=== PATIENT | female | born 1955 | race Asian ===

== ENCOUNTER 2021-06-21 07:12 | Emergency (ER) | payer MEDICARE, SELFPAY ==
[2021-06-21] VITALS (11 sets, daily range): BP systolic 151–208; BP diastolic 84–107; PULSE 68–80; RESP 17–33; TEMP 36.1–36.6; O2SAT 98–99
--- NOTE | 2021-06-21 07:45 | DI.CT.S_ITS ---
PROCEDURE: CT HEAD/BRAIN WO CON INDICATIONS: headache and HTN TECHNIQUE: Noncontrast 4.5 mm thick angled axial sections acquired from the foramen magnum to the vertex, with coronal and sagittal reformats. For radiation dose reduction, the following was used: automated exposure control, adjustment of mA and/or kV according to patient size. COMPARISON: None. FINDINGS: Image quality: Excellent. CSF spaces: Basal cisterns are patent. No extra-axial fluid collections. The ventricles are symmetric in size and shape. Brain: No intracranial bleeds or masses. There is cerebral volume loss for age, with resultant ventricular and sulcal prominence. There are periventricular and deep white matter chronic small vessel ischemic changes. There is intracranial internal carotid artery atherosclerosis. Skull and face: Calvarium and visualized facial bones appear intact, without suspicious lesions. Sinuses: Visualized sinuses and mastoids are clear. IMPRESSION: No acute intracranial disease process. Dictated by: Lety Longoria MD, PhD on 06/21/2021 at 8:24 Approved by: Lety Longoria MD, PhD on 06/21/2021 at 8:26
--- NOTE | 2021-06-21 07:47 | ED.HA ---
HPI - Headache General Chief Complaint: Headache Stated Complaint: headache x2 days Time Seen by Provider: 06/21/21 07:45 History of Present Illness HPI Narrative: Patient is a 65-year-old female with no past medical history presenting today with 2 days of headache. She says she thinks it is due to stress, it feels like a cramp all over her head. She denies any nausea or vomiting no numbness tingling or weakness. She has been taking Aleve without and with relief. She has no neck pain fever. She is noted to have hypertension without blood pressure over 200 in the emergency department. She denies any prior history of hypertension. She says that she has insomnia and is drinks every night so that she can sleep. Language line is used for interpretation along with family member. Related Data Previous Rx's Medication Instructions Recorded hydrochlorothiazide 25 mg tablet 25 mg PO DAILY #30 tab 06/21/21 Allergies Allergy/AdvReac Type Severity Reaction Status Date / Time No Known Drug Allergies Allergy Verified 06/21/21 08:01 Review of Systems Review of Systems Narrative: GENERAL: Denies chills, fatigue, malaise, fever, sweats, travel HEENT: Denies sinus pain, ear pain, sore throat, difficulty swallowing, neck pain RESPIRATORY: Denies dyspnea, cough, wheezing, hemoptysis, sputum. CARDIOVASCULAR: Denies chest pain, palpitations, orthopnea, edema GASTROINTESTINAL: Denies nausea, vomiting, abdominal pain, diarrhea, constipation, melena. : Denies dysuria, frequency, incontinence, hematuria, urinary retention, flank pain. MUSCULOSKELETAL: Denies weakness, joint pain, or bony pain SKIN: No rash, no erythema, no pruritus NEUROLOGIC: See HPI PSYCHIATRIC: No concerning psychosocial issues. 12 point review of systems is negative except for those stated above and HPI Patient History Social History Smoking Status: Never smoker alcohol intake frequency: 3 or more drinks per day Alcohol type: beer and hard liquor Exam Initial Vital Signs Initial Vital Signs: Vital Signs Temperature 97 F L 06/21/21 07:28 GENERAL: Alert well-appearing 65-year-old HEENT: Head atraumatic,EOMI, pupils reactive, face symmetric, neck is supple without meningeal signs CARDIOVASCULAR: Regular rate and rhythm without murmurs, rubs or gallops. RESPIRATORY: Breath sounds equal bilaterally, no wheezes rales or rhonchi. ABDOMEN: Soft, nontender. Normoactive bowel sounds all 4 quadrants. No guarding or rebound. EXTREMITIES: Normal range of motion, no clubbing or edema. Neurovascularly intact NEUROLOGICAL: Alert and oriented x4.Normal gait and speech. Cranial nerves II through XII grossly intact. Good [id number], good [id number], strength equal bilaterally, no dysarthria or aphasia, sensation in tact to soft touch bilaterally, no visual changes, no facial droop SKIN: Warm, dry, no laceration, no petechiae, no rashes or lesions. Scores NIH Stroke Scale Level of Conciousness: Alert, keenly responsive Ask month/age: Answers both questions correctly. Open/close eyes, close hand: Performs both tasks correctly Best gaze horizontal: Normal Visual nettles: No visual loss Facial palsy: Normal symetrical movement Left arm drift: No drift for full 10 sec Right arm drift: No drift for full 10 sec Left leg drift: No drift for full 5 sec Right leg drift: No drift for full 5 sec Limb ataxia: Absent Sensory on face/arms/legs: Normal, no sensory loss Best language: No aphasia, normal Dysarthria: Normal Extinction or inattention: No abnormality Total NIH Stroke scale score: 0 Course Orders Ordered: Discontinued Medications Ketorolac Tromethamine (Ketorolac 30 Mg/Ml Vial) 15 mg IV NOW ONE Stop: 06/21/21 08:40 Last Admin: 06/21/21 09:03 Dose: 15 mg Documented by: SHERRY Labetalol HCl (Labetalol 20 Mg/4 Ml Syringe) 10 mg IV NOW ONE Stop: 06/21/21 07:47 Last Admin: 06/21/21 09:53 Dose: Not Given Documented by: MIGUELOTEM Labetalol HCl (Labetalol 20 Mg/4 Ml Syringe) 10 mg IV NOW ONE Stop: 06/21/21 09:35 Last Admin: 06/21/21 09:42 Dose: 10 mg Documented by: JOSEP Vital Signs Vital signs: Vital Signs - 8 hr 06/21/21 10:22 Pulse Rate 78 Respiratory Rate 18 Blood Pressure 151/84 H Pulse Oximetry 98 MDM - Headache Lab Data Result diagrams: 06/21/21 07:59 06/21/21 07:59 Labs: Lab Results 06/21/21 06/21/21 Range/Units 07:59 07:59 WBC 7.0 (4.5-11.0) X10^3/uL RBC 4.53 (4.0-5.2) X10^6/uL Hgb 14.4 (12.0-16.0) g/dL Hct 42.8 (36-46) % MCV 94.6 (80-100) fL MCH 31.8 (26-34) PG MCHC 33.6 (30-36) % RDW 13.4 (11.6-14.8) % Plt Count 250 (150-400) X10^3/uL Neut % (Auto) 60.0 (50-75) % Lymph % (Auto) 29.5 (25-40) % [place] % (Auto) 7.8 (3-14) % Eos % (Auto) 2.1 (2-4) % Baso % (Auto) 0.6 (0-2) % Neut # (Auto) 4200 (3076-9479) /uL Lymph # (Auto) 2100 (1495-0107) /uL [place] # (Auto) 500 (0-900) /uL Eos # (Auto) 100 (0-450) /uL Baso # (Auto) 0 (0-100) /uL Sodium 143 (137-145) mmol/L Potassium 4.0 (3.4-5.1) mmol/L Chloride 105 (98-107) mmol/L Carbon Dioxide 33 H (22-32) mmol/L BUN 12 (7-17) mg/dL Creatinine 0.66 (0.52-1.04) mg/dL Estimated GFR > 60.0 (>60) mL/min BUN/Creatinine Ratio 18.2 (6-22) Glucose 113 H (80-110) mg/dL Calcium 9.7 (8.4-10.2) mg/dL Total Bilirubin 0.5 (0.2-1.3) mg/dL AST 38 H (14-36) IU/L ALT 30 (<35) IU/L Alkaline Phosphatase 69 (38-126) U/L Total Creatine Kinase 104 (30-135) U/L CK-MB (CK-2) 3.02 H (<2.37) ng/mL CK-MB (CK-2) Rel Index 2.9 (1.5-5.0) % Troponin I < 0.012 (0.01-0.034) ng/mL Total Protein 8.2 (6.3-8.2) g/dL Albumin 4.8 (3.5-5.0) g/dL Globulin 3.4 (1.7-4.1) g/dL Albumin/Globulin Ratio 1.4 (1.0-2.8) Lipase 205 (23-300) U/L Imaging Data CT scan - head: Radiologist's Impression: PROCEDURE:? CT HEAD/BRAIN WO CON ? INDICATIONS:? headache and HTN ? TECHNIQUE:? Noncontrast 4.5 mm thick angled axial sections acquired from the foramen magnum to the vertex, with coronal and sagittal reformats.? For radiation dose reduction, the following was used:? automated exposure control, adjustment of mA and/or kV according to patient size.? ? COMPARISON:? None. ? FINDINGS:? Image quality:? Excellent.? ? CSF spaces:? Basal cisterns are patent.? No extra-axial fluid collections.? The ventricles are symmetric in size and shape.? ? Brain:? No intracranial bleeds or masses.? There is cerebral volume loss for age, with resultant ventricular and sulcal prominence.? There are periventricular and deep white matter chronic small vessel ischemic changes.? There is intracranial internal carotid artery atherosclerosis.? ? Skull and face:? Calvarium and visualized facial bones appear intact, without suspicious lesions.? ? Sinuses:? Visualized sinuses and mastoids are clear.? ? IMPRESSION:? No acute intracranial disease process. ? ? Dictated by: Lety Longoria MD, PhD on 06/21/2021 at 8:24 ? ECG Data Interpretation: Normal sinus rhythm rate 77 p.r. interval 136 QRS [address] changes no priors to compare MDM Narrative Medical decision making narrative: Patient's blood pressure initially quite hypertensive with headache. Negative stroke scale a negative head CT. Blood pressure comes down without any intervention but still having mild headache. She is given Toradol which does not completely resolve her headache. Blood pressure remains in the 170s. Headache may be related to persistently elevated blood pressure. She is given labetalol which decreases her blood pressure and decreases her headache. She does not have a primary care provider. I have spoken family about finding her primary care. In the meantime I will start her on some blood pressure medication but he understands that she needs further evaluation and workup. Discharge Plan Departure Patient Disposition: Home Clinical Impression: Headache, Hypertension Instructions: Essential Hypertension Activity Restrictions/Additional Instructions: *You have been diagnosed with hypertension, headache *What to do: At this time I suspect her headache is from elevated blood pressure. Should chronically elevated blood pressure can put you at risk for stroke and heart attack. Please check blood pressure once a day and record it. Bring to appointment with your primary care provider *Continue to take medications as directed *Follow up with your primary care provider in 2-3 days or call [phone] *Return to ER if you should have worsening headache, weakness, numbness tingling dizziness vomiting chest pain shortness of breath or, persistently elevated blood pressure greater than 190/100 new, worsening or concerning symptoms Prescriptions: New hydrochlorothiazide 25 mg tablet 25 mg PO DAILY Qty: 30 0RF
[2021-06-21 08:10] LABS: Add Manual Diff / Slide Review NO; Basophils Absolute Auto 0 /uL (0-100); Basophils Percent Auto 0.6 % (0-2); Eosinophils Absolute Auto 100 /uL (0-450); Eosinophils Percent Auto 2.1 % (2-4); Hematocrit 42.8 % (36-46); Hemoglobin 14.4 g/dL (12.0-16.0); Lymphocytes Absolute Auto 2100 /uL (1100-4500); Lymphocytes Percent Auto 29.5 % (25-40); Mean Corpuscular HGB Conc 33.6 % (30-36); Mean Corpuscular Hemoglobin 31.8 PG (26-34); Mean Corpuscular Volume 94.6 fL (80-100); Monocytes Absolute Auto 500 /uL (0-900); Monocytes Percent Auto 7.8 % (3-14); Neutrophils Absolute Auto 4200 /uL (1500-7000); Platelet Count 250 X10^3/uL (150-400); Red Blood Cell Count 4.53 X10^6/uL (4.0-5.2); Red Cell Distribution Width 13.4 % (11.6-14.8)
[2021-06-21 08:25] LABS: Alanine Aminotransferase 30 IU/L (<35); Albumin 4.8 g/dL (3.5-5.0); Albumin Globulin Ratio 1.4 (1.0-2.8); Alkaline Phosphatase 69 U/L (38-126); Aspartate Aminotransferase 38 IU/L (14-36); BUN Creatinine Ratio 18.2 (6-22); Bilirubin Total 0.5 mg/dL (0.2-1.3); Blood Urea Nitrogen 12 mg/dL (7-17); Calcium 9.7 mg/dL (8.4-10.2); Carbon Dioxide 33 mmol/L (22-32); Chloride 105 mmol/L (98-107); Creatine Kinase 104 U/L (30-135); Estimated Glomerular Filt Rate > 60.0 mL/min (>60); Globulin 3.4 g/dL (1.7-4.1); Glucose 113 mg/dL (80-110); HEMOLYSIS < 15 (0-50); Lipase 205 U/L (23-300); Sodium 143 mmol/L (137-145); Total Protein 8.2 g/dL (6.3-8.2)
[2021-06-21 08:37] LABS: Troponin I < 0.012 ng/mL (0.01-0.034)
[2021-06-21 08:40] LABS: CKMB % Relative Index 2.9 % (1.5-5.0); Creatine Kinase MB 3.02 ng/mL (<2.37)
[2021-06-21] MEDS: KETOROLAC 30 MG/ML VIAL 15 MG IV (09:03)
[2021-06-21] MEDS: LABETALOL 20 MG/4 ML SYRINGE 10 MG IV (09:42)
== END 2021-06-21 10:23 | disposition home or self-care (01) ==
PROVIDERS: Emergency Provider Emergency Medicine
DX: R51.9 Headache, unspecified (principal); I10 Essential (primary) hypertension
CPT/HCPCS: 36415; 70450; 80053; 82550; 82553; 83690; 84484; 85025; 93005; 96374; 96375; 99284; J1885

== ENCOUNTER → 2024-01-23 11:53 | Outpatient (CLI) | payer MEDICARE, SELFPAY ==
--- NOTE | 2024-01-23 | DI.RAD.S_ITS ---
PROCEDURE: XR KNEE RT 3V INDICATIONS: right knee pain TECHNIQUE: 3 views of the knee were acquired. COMPARISON: None. FINDINGS: Bones: No fractures or dislocations. No suspicious bony lesions. Soft tissues: There is a large knee joint effusion. No suspicious soft tissue calcifications. IMPRESSION: 1. No evidence for acute osseous abnormality. 2. Large knee joint effusion. Dictated by: Nicola Rangel M.D. on 01/23/2024 at 14:00 Approved by: Nicola Rangel M.D. on 01/23/2024 at 14:02
== END ==
PROVIDERS: PCP Internal Medicine; Referring Provider Internal Medicine; Visit Provider Internal Medicine
DX: M25.561 Pain in right knee (principal); M25.461 Effusion, right knee
CPT/HCPCS: 73562